=== PATIENT | male | born 1965 | race Caucasian/White ===

== ENCOUNTER 2019-06-12 11:34 | Emergency (ER) | payer OTHER, SELFPAY ==
[2019-06-12 11:41] VITALS: BP 199/100; PULSE 87; RESP 20; TEMP 36.8; O2SAT 98
--- NOTE | 2019-06-12 11:42 | ED.WOUNDLAC ---
HPI - Wound/Laceration General Chief Complaint: Wound/Laceration Stated Complaint: left foot fb Time Seen by Provider: 06/12/19 12:05 Source: patient and RN notes reviewed Mode of arrival: ambulatory Limitations: no limitations History of Present Illness HPI narrative: 54 year old male who presents to [facility] care with complaints of foreign body to the bottom of his left fore foot mid plantar region. Patient states that he has been staying at his shop and stepped out of the shower and thinks he stepped on a piece of metal which imbedded into his foot. Patient states that his left foot has become increasingly sore and since he is diabetic he is worried about infection. Patient states that he has been soaking his left foot in Epsom salt soaks twice daily and has been taking Ibuprofen for his discomfort. Patient has whitish 0.25 diameter area to the bottom of his left forefoot mid plantar region which is tender to palpation, no redness or drainage noted. Onset (ago): day(s) (4) Location: other (planter region left foot) Extremity Location: Left: foot Place: other (shop) Patient tetanus UTD: Yes Context: accidental Associated symptoms: pain and suspect foreign body present Treatments prior to arrival: NSAIDS and other (soaked in epsom salt) Related Data Home Medications Medication Instructions Recorded Confirmed losartan 06/12/19 metformin 06/12/19 Allergies Allergy/AdvReac Type Severity Reaction Status Date / Time No Known Allergies Allergy Verified 06/12/19 11:57 Review of Systems Review of Systems: Narrative: CONSTITUTIONAL: Denies fever, chills, or sweats. EYES: Denies visual changes, redness, or discharge. ENT: Denies rhinorrhea, congestion, sore throat, or otalgia. CARDIOVASCULAR: Denies chest pain, palpitations, or edema. RESPIRATORY: Denies cough or dyspnea. GASTROINTESTINAL: Denies abdominal pain, nausea, vomiting, or diarrhea. GENITOURINARY: Denies dysuria or hematuria. SKIN: Denies rash or itching.0.25 diameter whitish minimally raised area to the mid plantar area of his left forefoot with tenderness. MUSCULOSKELETAL: Denies back pain, joint pain, or myalgia. NEUROLOGIC: Denies headache, numbness, or weakness. PSYCHIATRIC: Denies anxiety or depression. All systems reviewed & are unremarkable except as noted in HPI and below PMFSH Past Medical History Medical History (Updated 06/13/19 @ 00:00 by Ever Watson) Diabetes Hypertension Social History Social History (Updated 06/14/19 @ 09:13 by Leonela Talavera NP) Smoking status: Smoker, status unknown Living arrangements: with family Gender identity (if verbalized by the patient): Male Comments At time of signature, agree with nursing past medical, social history. There is no relevant family history pertinent to the presenting complaint Exam Narrative: Exam Narrative: GENERAL: Well-appearing, well-nourished, and in no acute distress. HEAD: Normocephalic, atraumatic. EYES: PERRLA and EOMI. ENT: Nares clear, no rhinorrhea or epistaxis. Mucous membranes moist. NECK: Supple. CHEST: Clear to auscultation. No respiratory distress.SAO2 98% on room air. HEART: Regular rate and rhythm. No murmur heard. Normal peripheral pulses. ABDOMEN: Soft, nontender, nondistended, normal active bowel sounds. EXTREMITIES: Normal range of motion. No edema. SKIN: Warm, dry, no rash.0.25 whitish minimally raised area to mid planter area of his left fore foot, no redness or drainage noted, states pain 8/10 with palpation and ambulation. NEURO: No focal deficits. Alert and oriented x3. Course Vital Signs Vital signs: Vital Signs Temperature 36.8 C 06/12/19 11:41 Pulse Rate 87 06/12/19 11:41 Respiratory Rate 06/12/19 11:41 Blood Pressure 199/100 H 06/12/19 11:41 Pulse Oximetry 98 06/12/19 11:41 Temperature 36.8 C 06/12/19 11:41 Pulse Rate 87 06/12/19 11:41 Respiratory Rate 20 06/12/19 11:41 Blood Pressure 150/88 H 06/12/19 12:40
[2019-06-12 12:40] VITALS: BP 150/88
== END 2019-06-12 12:46 | disposition home or self-care (01) ==
PROVIDERS: Emergency Provider Registered Nurse
DX: S91.342A Puncture wound with foreign body, left foot, initial encounter (principal); X58.XXXA Exposure to other specified factors, initial encounter; E11.9 Type 2 diabetes mellitus without complications; I10 Essential (primary) hypertension
CPT/HCPCS: 28190; 99213; G0463